=== PATIENT | female | born 2000 | race Hispanic/Latino ===

== ENCOUNTER 2023-08-15 19:54 | Emergency (ER) | payer OTHER, SELFPAY ==
[2023-08-15 22:32] LABS: Absolute Lymphocytes (CBC) 2.5 K/uL (0.7-4.9); Hematocrit 38.3 % (36.0-45.0); Lymphocytes % 37.4 % (15.3-44.8); MCV 80.9 fL (80-100); MPV 8.9 fL (7.6-11.3); Platelets 228 thou/uL (152-406); RBC Red Blood Cell Count 4.74 M/uL (3.86-4.86)
[2023-08-15 22:39] LABS: Specific Gravity 1.028 (1.005-1.030)
[2023-08-15 22:45] LABS: Specific Gravity 1.028 (1.005-1.030); Urine Bacteria None Seen /HPF (<20); Urine Bilirubin NEGATIVE (Negative); Urine Blood 3+ (OVER) (Negative); Urine Clarity Extremely Turbid (Clear); Urine Color Light-Orange (Yellow); Urine Glucose NEGATIVE (Negative); Urine Protein 1+ (Negative); Urine Urobilinogen Normal (Normal)
[2023-08-15 22:49] LABS: Albumin 3.9 g/dL (3.4-5.0); Bilirubin Total 0.2 mg/dL (0.2-1.0); Potassium 3.3 mEq/L (3.5-5.1); Protein, Total 7.5 g/dL (6.4-8.2); Urine RBC >50 /HPF (None Seen)
--- NOTE | 2023-08-15 23:03 | ER ---
Nurse's Notes [facility] – [place], [place] Name: Rajni Dubon Age: 22 yrs Sex: Female : 2000 Arrival Date: 08/15/2023 Time: 19:54 Bed 8 Private MD: Diagnosis: Abnormal uterine and vaginal bleeding, unspecified;Hypokalemia Presentation: 08/15 20:21 Chief complaint: Patient states: she started having tingling in her hands and feet ap3 approx one hour ago. Coronavirus screen: At this time, the client does not indicate any symptoms associated with coronavirus-19. Ebola Screen: No symptoms or risks identified at this time. Initial Sepsis Screen: Does the patient meet any 2 criteria? No. Patient's initial sepsis screen is negative. Does the patient have a suspected source of infection? No. Patient's initial sepsis screen is negative. Risk Assessment: Do you want to hurt yourself or someone else? Patient reports no desire to harm self or others. Onset of symptoms was August 15, 2023 at 19:30. 20:21 Method Of Arrival: Wheelchair ap3 20:21 Acuity: SANNA 3 ap3 Triage Assessment: 20:23 General: Appears distressed, Behavior is crying. Pain: Denies pain. Neuro: Reports ap3 tingling in her hands and feet. Cardiovascular: Patient's skin is warm and dry. Respiratory: Airway is patent Respiratory effort is even, unlabored, Respiratory pattern is regular, symmetrical. 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 - Social history:: Smoking status: Patient denies any tobacco usage or history of. Screenin:23 Abuse screen: Denies threats or abuse. Nutritional screening: No deficits noted. ap3 Tuberculosis screening: No symptoms or risk factors identified. 21:00 [facility] ED Fall Risk Assessment (Adult) History of falling in the last 3 months, nw1 including since admission No falls in past 3 months (0 pts) Confusion or Disorientation No (0 pts) Intoxicated or Sedated No (0 pts) Impaired Gait No (0 pts) Mobility Assist Device Used No (0 pt) Altered Elimination No (0 pt) Score/Fall Risk Level 3 or more points = High Risk Oriented to surroundings, Maintained a safe environment, Educated pt \T\ family on fall prevention, incl call for assistance when getting out of bed, Assessed \T\ reinforced patient's understanding of fall precautions, Provided non-skid footwear, Hourly rounding (assess needs \T\ fall precautionary measures) done. Assessment: 21:00 General: Appears in no apparent distress. Behavior is calm, cooperative, appropriate nw1 for age. 21:00 Reassessment: pt states tingling and numbness in bilateral hands and feet that started nw1 less than 2 hours ago. 0 s/s of acute distress noted. Pt denies PMHx. Call light at bedside. S.O. at bedside. Will continue to monitor. Pain: Denies pain. Neuro: No deficits noted. Cardiovascular: No deficits noted. Respiratory: No deficits noted. GI: No deficits noted. : No deficits noted. Derm: No deficits noted. Musculoskeletal: No deficits noted. Vital Signs: 20:21 BP 118 / 75; Pulse 85; Resp 19; Temp 98.4; Pulse Ox 98% ; Weight 47.63 kg; Pain 0/10; ap3 20:21 Pain Scale: Adult ap3 ED Course: 19:56 Patient arrived in ED. jj6 19:57 Rafal Patino MD is Attending Physician. ec2 20:23 Triage completed. ap3 20:24 Arm band placed on right wrist. ap3 20:32 Jhon Medrano RN is Primary Nurse. la4 21:00 Patient has correct armband on for positive identification. Placed in gown. Bed in low nw1 position. Call light in reach. Side rails up X2. Adult w/ patient. Provided Education on: POC. Door closed. Noise minimized. Warm blanket given. 21:00 No provider procedures requiring assistance completed. Patient did not have IV access nw1 during this emergency room visit. 22:05 UAM Sent. jr12 22:05 Test, Urine Sent. jr12 22:05 CMP Sent. jr12 22:05 CBC with Diff Sent. jr12 Administered Medications: No medications were administered Medication: 21:00 VIS not applicable for this client. nw1 Outcome: 21:00 Discharged to home nw1 21:00 Condition: stable 21:00 Discharge instructions given to patient, Instructed on discharge instructions, Demonstrated understanding of instructions, 23:03 Discharge ordered by . tonya 23:20 Patient left the ED. nw1 Signatures: Lidia Nino, RN RN ap3 Carline Pearl jj6 Rafal Patino MD MD ec2 Alva Chua jr12 Jhon Medrano RN RN la4 Funmilayo Malave RN RN nw1
--- NOTE | 2023-08-15 23:03 | EDPHYS ---
Physician Documentation [facility] Name: Rajni Dubon Age: 22 yrs Sex: Female : 2000 Arrival Date: 08/15/2023 Time: 19:54 Bed 8 Private MD: ED Physician Rafal Patino HPI: 08/15 19:58 This 22 yrs old Female presents to ER via Unassigned with complaints of PT STATES SHE ec2 HAS BEEN ON HER CYCLE FOR A WEEK AND THEN TODAY SHE STARTED FEELING TINGLING/NUMBNESS IN THE UPP/LOW EXT.. 20:30 Patient arrives today due to concern for irregular bleeding, states that she has been ec2 on her period for approximately 1 week. Patient reports some lower abdominal cramping that occurred yesterday however is not having any abdominal pain today. Patient reports no nausea or vomiting, no diarrhea symptoms, no urinary problems. Patient reports that her periods typically irregular. Patient also with complaints of paresthesias in the bilateral upper and lower extremities. Patient reports no medical problems. Patient states that she has taken Midol for her symptoms and has had minimal improvement in her symptoms.. GUIDE ALPINE: 20:24 LMP 08/07/2023, unknown ap3 Historical: - Allergies: 20:23 No Known Allergies; ap3 - Home Meds: 20:23 None [Active]; ap3 - PMHx: 20:23 None; ap3 - Immunization history:: Client reports having NOT received the Covid vaccine. - Social history:: Smoking status: Patient denies any tobacco usage or history of. ROS: 20:30 Constitutional: as per hpi ec2 Exam: 20:30 Constitutional: GEN: NAD Head: atraumatic Eyes: EOMI Ears: External ears are ec2 normal. CV: regular rate LUNGS: no respiratory distress ABD: non-distended nontender, no guarding, nonrigid, SKIN: no evidence of rashes MSK: no evidence of trauma NEURO: moves all extremities equally cranial nerves II through XII intact, strength intact in all 4 extremities, sensation intact throughout Vital Signs: 20:21 BP 118 / 75; Pulse 85; Resp 19; Temp 98.4; Pulse Ox 98% ; Weight 47.63 kg; Pain 0/10; ap3 20:21 Pain Scale: Adult ap3 MDM: 19:58 Patient medically screened. ec2 20:30 ED course: Patient arrives today due to concern for abnormal uterine bleeding as well ec2 as paresthesias. Examination remarkable for well-appearing nontoxic individual is otherwise in no acute distress with a reassuring neurologic exam and a benign abdomen. Will obtain lab work, urine studies and reassess the patient. Currently considered process such as anemia, electrolyte disturbances, , UTI.. 22:59 Data reviewed: vital signs. ED course: CBC is reassuring without evidence of anemia. ec2 Metabolic profile shows hypokalemia with a potassium of 3.3, some diminished renal function with a GFR 78. Urine is notable for leuk esterase, minimal, does have RBCs, consistent with the patient's vaginal bleeding. Patient with negative testing. On reassessment patient is well-appearing no acute distress, has reassuring vital signs. Will discharge home, instructed on potassium supplementation. Return precautions given. . 08/15 19:59 Order name: CBC with Diff; Complete Time: 22:58 ec2 08/15 19:59 Order name: CMP; Complete Time: 22:58 ec2 08/15 19:59 Order name: Test, Urine; Complete Time: 22:58 ec2 08/15 19:59 Order name: UAM; Complete Time: 22:58 ec2 Administered Medications: No medications were administered Disposition Summary: 08/15/23 23:03 Discharge Ordered Notes: Location: Home ec2 Condition: Stable ec2 Diagnosis - Abnormal uterine and vaginal bleeding, unspecified ec2 - Hypokalemia ec2 Followup: ec2 - With: Private Physician - When: - Reason: Recheck today's complaints, Re-evaluation by your physician Discharge Instructions: - Discharge Summary Sheet ec2 - Abnormal Uterine Bleeding ec2 - Potassium Content of Foods ec2 Forms: - Medication Reconciliation Form ec2 - Thank You Letter ec2 - Antibiotic Education ec2 - Prescription Opioid Use ec2 - Patient Portal Instructions ec2 - Leadership Thank You Letter ec2 Signatures: Dispatcher [employer] Lidia Raygoza RN RN ap3 Rafal Patino MD MD ec2
[2023-08-15 23:26] VITALS: BP 118/75; TEMP 98.4; O2SAT 98
== END 2023-08-15 23:20 | disposition home or self-care (01) ==
LOC: ER 19:54
DX: N93.9 Abnormal uterine and vaginal bleeding, unspecified (principal); E87.6 Hypokalemia; R20.2 Paresthesia of skin
CPT/HCPCS: 36415; 80053; 81001; 81025; 85025; 99283